=== PATIENT | female | born 1985 | race Caucasian/White ===

== ENCOUNTER 2017-03-06 13:38 | Emergency (ER) | payer MEDICAID ==
[~2017-03-06] VITALS: Wt 113.6 kg
[~2017-03-06 13:38] MED LIST: FERR27TA PO; PREN1TAB49 PO
[2017-03-06] MEDS ORDERED: LIDOCAINE/MYLANTA 40 ML BTL PO ONE (15:00)
[2017-03-06] MEDS ORDERED: HYDROCODONE/APAP (5/325) TAB PO ONE (15:00)
[2017-03-06 15:01] LABS: URINE BLOOD (Dip) POC Negative (NEGATIVE)
[2017-03-06 15:26] LABS: BASOPHILS % 0.3 % (0.0-2.0); EOSINOPHILS # 0.1 10^3/ul (0.0-0.5); EOSINOPHILS % 0.6 % (0.0-7.0); HEMATOCRIT 36.2 % (37.0-47.0); HEMOGLOBIN 11.8 g/dl (12.0-16.0); LYMPHOCYTES # 1.1 10^3/ul (0.8-2.9); LYMPHOCYTES % 12.1 % (15.0-51.0); MEAN CORPUSCULAR HEMOGLOBIN 26.4 pg (29.0-33.0); MEAN CORPUSCULAR HGB CONC 32.6 g/dl (32.0-37.0); MEAN PLATELET VOLUME 10.9 fl (7.4-10.4); MONOCYTE # 0.5 10^3/ul (0.3-0.9); NEUTROPHILS % 81.7 % (39.0-77.0); PLATELET COUNT 273 10^3/UL (140-415); RED BLOOD COUNT 4.47 10^6/ul (4.20-5.40); RED CELL DISTRIBUTION WIDTH 14.1 % (11.5-14.5); WHITE BLOOD COUNT 9.3 10^3/ul (4.8-10.8)
--- NOTE | 2017-03-06 15:47 | RADRPT ---
PROCEDURE: US Abdomen Limited . CLINICAL INDICATION: Abdominal pain TECHNIQUE: Multiple real-time images were acquired of the patient's right upper quadrant abdomen u tilizing a high resolution transducer. COMPARISON: None FINDINGS: The liver measures 18.0 cm and demonstrates a coarsened echogenicity. The gallbladder is filled with a moderate amount of bile. Multiple echogenic, shadowing stones are identified. The largest measu res up to 1.9 cm and is noted in the gallbladder neck. The gallbladder wall is not thickened at 1.2 mm. No pericholecystic fluid is noted. The common bile duct measures 3.3 mm in diameter. The pancre as is not well visualized. Antegrade flow is seen in the portal vein. Right kidney measures 9.2 cm. Right kidney demonstrates a normal echogenicity. No hydronephrosis, masses or stones are noted. IMPRESSION: Diffuse fatty infiltration of a mildly enlarged liver. Cholelithiasis. Pancreas not well visualized. If characterization of this structure is needed repeat exam or CT/MRI is recommended. RPTAT: AA .Kyle Peter MD, MD Date Time Electronically viewed and signed by .Kyle Peter MD, on 03/06/2017 15:47 .P/
[2017-03-06 15:52] LABS: ALBUMIN 4.2 g/dl (3.3-4.9); ALBUMIN/GLOBULIN RATIO 1.13; BILIRUBIN,INDIRECT 0.6 mg/dl (0-1.1); BILIRUBIN,TOTAL 0.6 mg/dl (0.2-1.3); CALCIUM 8.7 mg/dl (8.4-10.2); CREATININE 0.59 mg/dl (0.44-1.00); POTASSIUM 3.8 mmol/L (3.5-5.1); TOTAL PROTEIN 7.9 g/dl (6.1-8.1)
--- NOTE | 2017-03-06 16:47 | ERD ---
ER Documentation Chief Complaint Date/Time DATE: 03/06/17 TIME: 16:45 Chief Complaint abd pain HPI This 31-year-old female who presents the emergency department today complaining of abdominal pain that comes and goes for the past 2 days. States that she woke up with the pain at 3 AM. States the pain is worse with food. She has not taken any medication for the pain states she was told one time " about 8 years ago that she has gastritis". Denies some nausea vomiting, fevers or chills. ROS All systems reviewed and are negative except as per history of present illness. Medications Home Meds Active Scripts Hydrocodone/Acetaminophen ([place] 5-325 Tablet) 1 Each Tablet, 1 TAB PO Q6H Y for PAIN, #7 TAB Prov:KASSIE TOPETE PA-C 03/06/17 Cephalexin* (Keflex*) 500 Mg Capsule, 500 MG PO QID for 7 Days, CAP Prov:KASSIE TOPETE PA-C 03/06/17 Acetaminophen* (Tylophen*) 500 Mg Capsule, 1 CAP PO Q6H Y for PAIN AND OR ELEVATED TEMP, #30 CAP Prov:KASSIE TOPETE PA-C 03/06/17 Famotidine* (Pepcid*) 20 Mg Tablet, 20 MG PO BID for 10 Days, TAB Prov:KASSIE TOPETE PA-C 03/06/17 Reported Medications Vits W-Ca,Fe,Fa(<1MG) () 1 Tab Tablet, 1 PO DAILY 05/12/11 Ferrous Sulfate (Iron) 1 Tab Tablet, 1 PO DAILY 05/12/11 Allergies Allergies: Coded Allergies: No Known Allergies (Unverified Allergy, Unknown, 08/07/06) PMhx/Soc Medical and Surgical Hx: pt denies Medical Hx, pt denies Surgical Hx Hx Alcohol Use: No Hx Substance Use: No Hx Tobacco Use: No Smoking Status: Never smoker Physical Exam Vitals Vital Signs Date Time Temp Pulse Resp B/P Pulse Ox O2 Delivery O2 Flow Rate FiO2 03/06/17 13:46 99.1 97 20 152/81 98 Physical Exam Const: Morbidly obese, no acute distress Head: Atraumatic Eyes: Normal Conjunctiva ENT: Normal External Ears, Nose and Mouth. Neck: Full range of motion..~ No meningismus. Resp: Clear to auscultation bilaterally Cardio: Regular rate and rhythm, no murmurs Abd: Soft, epigastric tenderness, mild right upper quadrant tenderness non distended. Normal bowel sounds. No lower abdominal pain Skin: No petechiae or rashes Back: No midline or flank tenderness Ext: No cyanosis, or edema Neur: Awake and alert Psych: Normal Mood and Affect Result Diagram: 03/06/17 1509 03/06/17 1509 Results 24 hrs Laboratory Tests Test 03/06/17 15:06 03/06/17 15:09 Bedside Urine pH (LAB) 5.5 Bedside Urine Protein (LAB) 1+ Bedside Urine Glucose (UA) Negative Bedside Urine Ketones (LAB) 2+ Bedside Urine Blood Negative Bedside Urine Nitrite (LAB) Negative Bedside Urine Leukocyte Esterase (L 1+ White Blood Count 9.310^3/ul Red Blood Count 4.4710^6/ul Hemoglobin 11.8g/dl Hematocrit 36.2% Mean Corpuscular Volume 81.0fl Mean Corpuscular Hemoglobin 26.4pg Mean Corpuscular Hemoglobin Concent 32.6g/dl Red Cell Distribution Width 14.1% Platelet Count 54533^3/UL Mean Platelet Volume 10.9fl Neutrophils % 81.7% Lymphocytes % 12.1% Monocytes % 5.0% Eosinophils % 0.6% Basophils % 0.3% Nucleated Red Blood Cells % 0.0/100WBC Neutrophils # (Manual) 810^3/ul Lymphocytes # 1.110^3/ul Monocytes # 0.510^3/ul Eosinophils # 0.110^3/ul Basophils # 0.010^3/ul Nucleated Red Blood Cells # 0.010^3/ul Sodium Level 139mmol/L Potassium Level 3.8mmol/L Chloride Level 103mmol/L Carbon Dioxide Level 25mmol/L Anion Gap 15 Blood Urea Nitrogen 11mg/dl Creatinine 0.59mg/dl Glucose Level 118mg/dl Calcium Level 8.7mg/dl Total Bilirubin 0.6mg/dl Direct Bilirubin 0.00mg/dl Indirect Bilirubin 0.6mg/dl Aspartate Amino Transf (AST/SGOT) 240IU/L Alanine Aminotransferase (ALT/SGPT) 271IU/L Alkaline Phosphatase 272IU/L Total Protein 7.9g/dl Albumin 4.2g/dl Globulin 3.70g/dl Albumin/Globulin Ratio 1.13 Lipase 87U/L Current Medications Medications (Trade) Dose Ordered Sig/Michele Route PRN Reason Start Time Stop Time Status Last Admin Dose Admin Acetaminophen/ Hydrocodone Bitart ([place] (5/325)) 1 tab ONCE ONCE PO 03/06/17 15:00 03/06/17 15:01 DC 03/06/17 15:04 Miscellaneous Medication (Gi Cocktail (2)) 40 ml ONCE ONCE PO 03/06/17 15:00 03/06/17 15:01 DC 03/06/17 15:03 DIAGNOSTIC IMAGING REPORT Patient: ARVIN LINN : 1985 Age: 31 Sex: F MR #: [id number] DOS: 03/06/17 0000 Ordering MD: KASSIE TOPETE PA-C Location: [facility] Room/Bed: PROCEDURE: US Abdomen Limited . CLINICAL INDICATION: Abdominal pain TECHNIQUE: Multiple real-time images were acquired of the patient's right upper quadrant abdomen utilizing a high resolution transducer. COMPARISON: None FINDINGS: The liver measures 18.0 cm and demonstrates a coarsened echogenicity. The gallbladder is filled with a moderate amount of bile. Multiple echogenic, shadowing stones are identified. The largest measures up to 1.9 cm and is noted in the gallbladder neck. The gallbladder wall is not thickened at 1.2 mm. No pericholecystic fluid is noted. The common bile duct measures 3.3 mm in diameter. The pancreas is not well visualized. Antegrade flow is seen in the portal vein. Right kidney measures 9.2 cm. Right kidney demonstrates a normal echogenicity. No hydronephrosis, masses or stones are noted. IMPRESSION: Diffuse fatty infiltration of a mildly enlarged liver. Cholelithiasis. Pancreas not well visualized. If characterization of this structure is needed repeat exam or CT/MRI is recommended. RPTAT: AA .Kyle Peter MD, Date Time Electronically viewed and signed by .Kyle Peter MD, on 03/06/2017 15:47 .P/ CC: KASSIE TOPETE PA-C Procedures/MDM This a 31-year-old female presents to the emergency department today complaining of abdominal pain that comes and goes and is worse with food for the past couple of days. Patient had epigastric pain on physical exam and she also had some mild right upper quadrant pain and therefore did obtain laboratory work as well as imaging. Laboratory workup shows no elevated white blood cell count. Her hemoglobin and hematocrit is very mildly decreased. Electro lites are within normal limits. Glucose is within normal limits. Liver enzymes are significantly elevated. Lipase is within normal limits per UA shows 1+ leukocyte esterase and negative nitrites. test is negative Ultrasound shows diffuse fatty infiltration of a mildly enlarged liver. There are multiple echogenic shadowing stones identified. There is no pericholecystic fluid. The gallbladder wall is not thickened. The common bile duct measures 3.3 mm in diameter. Patient symptoms at this time is consistent with epigastric pain with a history of gastritis and gallstones and possibly biliary colic. Given patient's abdominal pain will treat her for urinary tract infection given her 1+ leukocyte Estrace. There is no indication for acute surgical abdomen at this time. Patient has no lower abdominal pain and no evidence of acute cholecystitis. Patient was given [place] and a GI cocktail here in the emergency department and symptoms resolved. Patient is given a prescription for a very limited number of [place], Tylenol, Pepcid for home as well as Keflex to treat her urinary tract infection.. She was instructed to follow-up with her primary care doctor for referral to general surgeon. Patient understood. She was given a list of resources. At this time the patient is stable for discharge and outpatient management. Patient should follow up with their PCP in the next 1-2 days. They may return to the emergency department sooner for any persistent or worsening of symptoms. Patient understood and agreed with the plan. Departure Diagnosis: Primary Impression: Abdominal pain Abdominal location: epigastric Qualified Code: R10.13 - Epigastric pain Additional Impression: UTI (urinary tract infection) Urinary tract infection type: site unspecified Hematuria presence: without hematuria Qualified Code: N39.0 - Urinary tract infection without hematuria, site unspecified Condition: Fair KASSIE TOPETE PA-C Mar 06, 2017 16:46
[2017-03-06] MEDS ORDERED: FAMO-96 PO (16:54)
[2017-03-06] MEDS ORDERED: CEPH-443 PO (16:54)
[2017-03-06] MEDS ORDERED: ACET500C5 PO (16:54)
[2017-03-06] MEDS ORDERED: HYDR-906 PO (16:55)
[2017-03-06 17:21] VITALS: BP 132/76; PULSE 77; RESP 20; TEMP 98.9
== END 2017-03-06 17:23 | disposition home or self-care (01) ==
LOC: FTE 13:38
DX: R10.13 Epigastric pain (principal); N39.0 Urinary tract infection, site not specified
CPT/HCPCS: 36415; 76705; 80053; 81003; 83690; 85025; Z7502; Z7610

== ENCOUNTER 2018-07-09 13:18 | Inpatient (IN) | payer OTHER ==
[~2018-07-09] VITALS: Ht 175.3 cm; Wt 140.8 kg
[~2018-07-09 13:18] MED LIST changes: +ACET500C5 PO; +CEPH-443 PO; +FAMO-96 PO; +HYDR-4011 PO
[2018-07-09 13:32] VITALS: Ht 175.3 cm; Wt 140.8 kg
--- NOTE | 2018-07-09 16:27 | PN ---
Triage Information Date/Time Reason for visit: Elevated blood pressure in office Weeks of Gestation 36 weeks and 3 days /Para Diabetes: none Additional information 32-year-old with single intrauterine at 36 weeks and 3 days with DRU of 08/03/2018 seen in office, she had a one elevated blood pressure. She is sent to triage for further evaluation. She states good movement. She denies nausea, vomiting, shortness of breath, chest pain, headache, visual changes, vaginal bleeding or LOF. Objective Heart Rate: 140's Contractions: None Results/Medications Result Diagram: 07/09/18 1341 07/09/18 1341 Results 24 hrs Laboratory Tests Test 07/09/18 13:30 07/09/18 13:41 Urine Color YELLOW Urine Clarity CLOUDY A Urine pH 6.0 Urine Specific [place] 1.010 Urine Ketones NEGATIVE Urine Nitrite NEGATIVE Urine Bilirubin NEGATIVE Urine Urobilinogen NEGATIVE Urine Leukocyte Esterase 3+ H Urine Microscopic RBC 16 H Urine Microscopic WBC 15 H Urine Squamous Epithelial Cells MODERATE Urine Bacteria FEW A Urine Mucus FEW A Urine Yeast (Budding) FEW A Urine Hemoglobin 1+ H Urine Glucose NEGATIVE Urine Total Protein NEGATIVE White Blood Count 8.3 Red Blood Count 3.82 L Hemoglobin 8.3 #L Hematocrit 27.1 #L Mean Corpuscular Volume 70.9 L Mean Corpuscular Hemoglobin 21.7 L Mean Corpuscular Hemoglobin Concent 30.6 L Red Cell Distribution Width 16.7 H Platelet Count 254 Mean Platelet Volume 11.0 H Immature Granulocytes % 0.800 H Neutrophils % 77.9 H Lymphocytes % 14.7 L Monocytes % 5.0 Eosinophils % 1.2 Basophils % 0.4 Nucleated Red Blood Cells % 0.0 Immature Granulocytes # 0.070 H Neutrophils # 6.5 Lymphocytes # 1.2 Monocytes # 0.4 Eosinophils # 0.1 Basophils # 0.0 Nucleated Red Blood Cells # 0.0 Prothrombin Time 13.5 Prothrombin Time Ratio 1.1 INR International Normalized Ratio 1.02 Activated Partial Thromboplast Time 33.1 Fibrinogen 634.0 H Sodium Level 136 Potassium Level 3.8 Chloride Level 107 Carbon Dioxide Level 22 Anion Gap 7 Blood Urea Nitrogen 5 L Creatinine 0.42 L Est Glomerular Filtrat Rate mL/min > 60 Glucose Level 83 Uric Acid 3.8 Calcium Level 8.1 L Total Bilirubin 0.1 L Direct Bilirubin 0.00 Indirect Bilirubin 0.1 Aspartate Amino Transf (AST/SGOT) 19 Alanine Aminotransferase (ALT/SGPT) 14 Alkaline Phosphatase 169 H Total Protein 6.0 L Albumin 2.8 L Globulin 3.20 Albumin/Globulin Ratio 0.87 Disposition: Discharge Assessment/Plan 32-year-old at 36 weeks and 3 days had one elevated blood pressure in office today, sent to triage for further evaluation. heart rate is category 1. She has no uterine contractions. She had no elevated blood pressure in triage and all blood pressure went up within normal limits. CBC CMP and uric acid performed no sign of preeclampsia with severe features. Urinalysis with 15 white BC and 16 RBC. Urine culture ordered. There is no urine protein. Ultrasound performed EFW of 2915 g. Biophysical profile 8 out of 8, amniotic fluid index 18.1 cm. Sign and symptom of labor, preeclampsia and kick count discussed with patient in detail. She expressed understanding all of her questions answered. She discharged home in stable condition with follow-up in 3 days for repeat NST. I strongly recommend come back to triage with any symptom of preeclampsia with severe features. 2. Anemia: Recommend increase ferrous sulfate to 3 tablets daily and continue vitamin. VESTA MAN Jul 09, 2018 16:27
[2018-07-09] MEDS: LACTATED RINGER'S 1,000 ML IV SCH (17:49)
[2018-07-09] MEDS ORDERED: LACTATED RINGER'S 500 ML IV ONE (18:00)
[2018-07-09] MEDS ORDERED: ACETAMINOPHEN 325 MG TAB PO PRN (21:00)
[2018-07-09] MEDS ORDERED: BETAMET NA PHOS/AC(6 MG/ML) 2 ML INJ SYG IM SCH (22:00)
[2018-07-10] MEDS: LACTATED RINGER'S 1,000 ML IV SCH ×2 (00:40→07:59)
[2018-07-10] MEDS ORDERED: EPHEDrine SULFATE 50 MG/5 ML SYG ONE (07:00)
--- NOTE | 2018-07-10 08:17 | PREAC ---
Date/Time of Note Date/Time of Note DATE: 07/10/18 TIME: 08:15 Anesthesia Eval and Record Evaluation Time Pre-Procedure Interview DATE: 07/10/18 TIME: 08:15 Age 32 Sex female NPO: 8 hrs Preoperative diagnosis Nonreassuring FHR Planned procedure c section Past Medical History Past Medical History: Includes GI: Morbid obesity Surgery & Anesthesia Issues No known issue Meds Anticoagulation: No Beta Deanna within 24 hr: No Reason Beta Deanna not given: Pt. not on B-Deanna Active Scripts Hydrocodone/Acetaminophen ([place] 5-325 Tablet) 1 Each Tablet, 1 TAB PO Q6H PRN for PAIN, #7 TAB Prov:KASSIE TOPETE PA-C 03/06/17 Cephalexin* (Keflex*) 500 Mg Capsule, 500 MG PO QID for 7 Days, CAP Prov:KASSIE TOPETE PA-C 03/06/17 Acetaminophen* (Tylophen*) 500 Mg Capsule, 1 CAP PO Q6H PRN for PAIN AND OR ELEVATED TEMP, #30 CAP Prov:KASSIE TOPETE PA-C 03/06/17 Famotidine* (Pepcid*) 20 Mg Tablet, 20 MG PO BID for 10 Days, TAB Prov:KASSIE TOPETE PA-C 03/06/17 Reported Medications Vits W-Ca,Fe,Fa(<1MG) () 1 Tab Tablet, 1 PO DAILY 05/12/11 Ferrous Sulfate (Iron) 1 Tab Tablet, 1 PO DAILY 05/12/11 Current Medications Lactated Ringer's 1,000 ml @ 125 mls/hr Q8H IV Last administered on 07/10/18at 07:59; Admin Dose 125 MLS/HR; Start 07/09/18 at 18:00 Betamethasone Acet/Betameth SodPhos ([place]el[place] Soluspan) 12 mg Q24H IM Last administered on 07/09/18at 21:50; Admin Dose 12 MG; Start 07/09/18 at 22:00; Stop 07/10/18 at 22:01 Prenat Multivit/ Benzie/Iron/Folic Ac () 1 tab DAILY PO ; Start 07/10/18 at 09:00 Ferrous Sulfate (Ferrous Sulfate (Ec)) 325 mg DAILY PO ; Start 07/10/18 at 09:00 Acetaminophen (Tylenol Tab) 650 mg Q4H PRN PO MILD PAIN(1-3)OR ELEVATED TEMP; Start 07/09/18 at 21:00 Cefazolin Sodium 3 gm/Dextrose 100 ml @ 100 mls/hr ONCE IV ; Start 07/10/18 at 08:30 Oxytocin/Lactated Ringer's 500 ml @ 125 mls/hr POST IV ; Start 07/10/18 at 08:30 Meds reviewed: Yes Allergies Coded Allergies: No Known Allergies (Unverified Allergy, Unknown, 08/07/06) Allergies Reviewed: Yes Labs/Studies Labs Reviewed: Reviewed by anesthesiologist Result Diagram: 07/09/18 1341 07/09/18 1341 Laboratory Tests 07/09/18 13:41 test: Positive Studies: ECG (n/a), CXR (n/a) Pre-procedure Exam Airway: Adequate mouth opening Mallampati: Mallampati I Teeth: Normal Lung: Normal Heart: Normal ASA Physical Status ASA physical status: 3 Emergency: E Planned Anesthetic Neuraxial: Spinal Planned Pain Management Sub-arachniod narcotics, Single shot nerve block Pre-operative Attestations Prior to commencing anesthesia and surgery, the patient was re-evaluated, there was verification of: *The patient's identity *The results of appropriate recent lab work and preoperative vital signs *The above evaluation not changing prior to induction *Anesthetic plan, risk benefits, alternative and complications discussed with patient/family; questions answered; patient/family understands, accepts and wishes to proceed. ALLYSSA POWERS MD Jul 10, 2018 08:17
[2018-07-10] MEDS ORDERED: OXYTOCIN 30 UNITS/LR 500 ML IV SCH (08:30)
[2018-07-10] MEDS ORDERED: CEFAZOLIN 3 GM in DEXTROSE 5% 100 ML IV SCH (08:30)
[2018-07-10] MEDS ORDERED: PRENATAL VITAMIN PO SCH (09:00)
[2018-07-10] MEDS ORDERED: FERROUS SULFATE (EC) 325 MG TAB PO SCH (09:00)
[2018-07-10] MEDS ORDERED: METOCLOPRAMIDE 10 MG INJ ONE (09:24)
[2018-07-10] MEDS ORDERED: KETOROLAC 30 MG INJ ONE (09:24)
[2018-07-10] MEDS ORDERED: morphine SULFATE/PF (10 MG/10 ML) INJ ONE (09:24)
[2018-07-10] MEDS ORDERED: ONDANSETRON 4 MG INJ ONE (09:24)
[2018-07-10] MEDS ORDERED: CARBOPROST 250 MCG INJ IM PRN ×2 (09:30→14:00)
[2018-07-10] MEDS ORDERED: OXYTOCIN 30 UNITS/LR 500 ML IV PRN ×2 (09:30→14:00)
[2018-07-10] MEDS ORDERED: MISOPROSTOL 200 MCG TAB PR PRN ×2 (09:30→14:00)
[2018-07-10] MEDS ORDERED: BUPIVACAINE 0.75%/DEXT (SPINAL) 2 ML INJ ONE (09:41)
[2018-07-10] MEDS ORDERED: OXYTOCIN 30 UNITS/LR 500 ML IV ONE (10:39)
--- NOTE | 2018-07-10 10:53 | PAC ---
Date/Time of Note Date/Time of Note DATE: 07/10/18 TIME: 10:53 Post-Anesthesia Notes Post-Anesthesia Note Last documented vital signs BP 127/65, HR 105, RR20, Sat 98%, tem 98.5 Activity: WNL Respiratory function: WNL Cardiovascular function: WNL Mental status: Baseline Pain reasonably controlled: Yes Hydration appropriate: Yes Nausea/Vomiting absent: No ALLYSSA POWERS MD Jul 10, 2018 10:53
[2018-07-10] MEDS ORDERED: ONDANSETRON 4 MG INJ IV PRN ×2 (11:00)
[2018-07-10] MEDS ORDERED: NALOXONE (0.4 MG/ML) INJ IV PRN (11:00)
[2018-07-10] MEDS ORDERED: morphine 2 MG INJ IV PRN ×3 (11:00)
[2018-07-10] MEDS ORDERED: DIPHENHYDRAMINE 50 MG INJ IV PRN ×2 (11:00)
[2018-07-10] MEDS ORDERED: KETOROLAC 30 MG INJ IV PRN (11:00)
[2018-07-10] MEDS ORDERED: morphine (1 MG/ML) 10ML SYRINGE IV PRN ×3 (11:00)
--- NOTE | 2018-07-10 11:18 | HP ---
Date/Time of Note Date/Time of Note DATE: 07/10/18 TIME: 09:47 OB - History Hx of Present Free Text/Dictation This is a 32 years old female 002 admitted to the hospital at 36 weeks and 3/7 days suspected PIH. During the period of observation noted several times category 3 heart tracing. Considering none effaced closed cervix and not anticipating a timely delivery. Plan of alternative route of delivery by discussed. Complication of section including but not limited to wound infection considering her morbid obesity. Possibility of wound hematoma. And bowel and bladder injury extensively. explained. All her questions answered Chief Complaint: 36 weeks / 7 days . PIH Estimated Due Date: Aug 03, 2018 : 3 Para: 2 Care: Good Care Ultrasounds: Normal mid trimester US Obstetrical Complications: Pre-eclampsia, Gestational Hypertension Medical Complications: None, Other (Morbid obesity) Past Family/Social History * Past Medical, Surgical, Family and Obstetric Histories reviewed from chart. Rubella: immune RPR/VDRL: Negative GBS Status: Negative HBsAG: Negative OB Admission Exam Physical Exam HEENT: WNL Heart: Rhythm Normal Lungs: Clear, Equal Abdomen: WNL Extremities: Normal Reflexes: Normal Cervical Dilatation: None Effacement: 0% Station: -2 Membranes: Intact Heart Rate: 130's Accelerations: Accelerations Present Decelerations: Variable Decelerations Varibility: Minimum Last 72 hours Lab Results CBC & BMP 07/09/18 13:41 Liver Function Test 07/09/18 13:41 Alanine Aminotransferase (ALT/SGPT) 14 Albumin 2.8 L Alkaline Phosphatase 169 H Aspartate Amino Transf (AST/SGOT) 19 Direct Bilirubin 0.00 Total Protein 6.0 L OB Assessment/Plan Reason for admission: other (36 weeks 4 days suspected PIH) Other plan: 32 years old ,36 weeks 4/7 days . Admitted to the hospital ,suspected PIH, during the course of observation and workup for PIH , noted several times prolonged variable deceleration with decreased variability, and lack of acceleration , with regard to her long and non-favorable closed cervix , not anticipating quick and timely delivery, plan of alternative route of delivery by discussed. Indication and reason for operative delivery explained. Also complication of including but not limited to bowel bladder injury wound infection with (morbid obesity), wound hematoma discussed GREGOR,HORMOZ MD Jul 10, 2018 11:08
--- NOTE | 2018-07-10 11:43 | OPR ---
Operative Report Planned Procedure Free Text/Dictation 32 years old , 36 weeks 4/7 day, her is complicated with PIH. Category 3 heart tracing Procedure date Jul 10, 2018 Procedure(s) Primary Performed by see signature line Sales Agent [employer]: JOVANNA LESLIE MD 2nd Sales Agent [employer] none Anesthesiologist: ALLYSSA POWERS MD Pre-procedure diagnosis 36 weeks4/7 days. complicated with PIH. Category 3 heart hernando ng [id number] Anesthesia Type: [id number] spinal Post-Procedure Post-procedure diagnosis Same as above Findings Live Baby girl 7 and 9. Nuchal cord several times around the baby's waist and ankle Estimated Blood Loss: 500 - 600 mls Specimen(s) none Grafts/Implant(s) none Complication(s) none Pt Condition post procedure: stable Disposition: post- Procedure Description Under satisfactory spinal anesthesia patient prepped and draped and placed in supine position. Pfannenstiel incision was made. Incision carried through the subcutaneous tissue. Fascia incised to the length of incision. Rectus muscle divided in midline. Peritoneum exposed and entered to a vertical incision. Exploration of abdomen revealed [gravid uterus at term normal-appearing tubes and ovaries.] Bladder flap was developed. Transverse incision was made in the lower segment of the uterus. Amniotic sac ruptured, [clear amniotic fluid noted.] Live baby girl was delivered from unengaged vertex umbilical cord around the baby's waist and right ankle.Naso oropharyngeal suction was performed. Baby handed to the team for immediate attention. Patient received 20 units of Pitocin. Placenta delivered manually intact. Uterine cavity cleaned with a wet sponge and drainage established. Uterus closed in 2 layers using Monocryl #1 in continuous fashion. Peritoneal cavity irrigated with warm saline. Sponge needle instrument reported to be correct. Abdominal peritoneum closed with 2-0 chromic catgut continuously. Fascia closed with #1 PDS in a continuous fashion. Subcutaneous tissue irrigated with warm saline and approximated with 2-0 chromic catgut skin closed with N sorb. Estimated blood loss 600 cc. Urine bag containing 200 mL of [clear] urine. Patient tolerated procedure well and transferred to recovery room in good condition. SRAVANTHI BUNDY MD Jul 10, 2018 11:38
[2018-07-10 13:40] VITALS: BP 113/63; PULSE 86; RESP 16
[2018-07-10] MEDS ORDERED: CEFAZOLIN 1 GM/50 ML (PMX) 50 ML IVPB SCH (14:00)
[2018-07-10] MEDS ORDERED: HYDROCODONE/APAP (5/325) TAB PO PRN (14:00)
[2018-07-10] MEDS ORDERED: METHYLERGONOVINE 0.2 MG INJ IM PRN (14:00)
[2018-07-10] MEDS ORDERED: LANOLIN HPA 1 PKT TOP PRN (14:00)
[2018-07-10] MEDS ORDERED: OXYCODONE/ACETAMINOPHEN (5/325) TAB PO PRN ×2 (14:00)
[2018-07-10 14:30] VITALS: BP 110/62; PULSE 84; RESP 16
[2018-07-10] MEDS: OXYTOCIN 30 UNITS/LR 500 ML IV SCH ×3 (14:40→22:43)
[2018-07-10 16:00] VITALS: BP 113/65; PULSE 98; RESP 16
--- NOTE | 2018-07-10 16:34 | NUR ---
visit. MOB stated she used breast pump 1x so far. Rev. pump schedule. CEM is a [facility] participant, called [facility] for pump referral. Rev. hand expression. MOB requested to call me when she is ready to hand express. Provided ext.
--- NOTE | 2018-07-10 17:50 | NUR ---
pumped .25ml ebm via pump, then an additional .5ml ebm via hand expression by sara bettencourt travel sales consultant-ebm sent to [facility].
[2018-07-10] MEDS: KETOROLAC 30 MG INJ IV PRN (17:59)
--- NOTE | 2018-07-10 18:14 | NUR ---
eoss: vss, fundus firm, lochia small, iv infusing via pump left hand without difficulty, pumping breasts with electric pump, anxious to visit baby when able, abd dsg dry and intact, no distress noted.
[2018-07-10 20:00] VITALS: BP 98/56; PULSE 92; RESP 20
--- NOTE | 2018-07-10 22:00 | NUR ---
ASSISTED TO BREAST PUMP. NO MILK AT THIS TIME AND NO COLOSTRUM MANUALLY EXPRESSED. LUCIO CARE AND PADS CHANGED. ASSISTED TO DANGLE AT BEDSIDE, THEN STAND AND THEN TO WALK FEW STEPS AT BEDSIDE. TOLERATED WELL. STATES SHE HAS FULL SENSATION IN LEGS. DENIES DIZZY OR WEAKNESS WHEN STANDING. SCDS REPLACED AND CYCLING AT 40. URINE DARK AND CONCENTRATED IN KENDRICK. ENCOURAGED PO FLUIDS. IV CONTINUES.
[2018-07-10 23:58] VITALS: BP 83/48; RESP 19
--- NOTE | 2018-07-11 00:07 | OPPN ---
Date/Time of Note Date/Time of Note DATE: 07/11/18 TIME: 00:07 Anesthesia Follow up Anesthesia Follow up Last documented vital signs Vital Signs Date Temp Pulse Resp B/P (MAP) Pulse Ox O2 O2 Flow FiO2 Time Delivery Rate 07/10/18 98.4 19 83/48 (60) 97 Room Air 23:58 07/10/18 92 20:00 Respiratory function: WNL Cardiovascular function: WNL Comments A 32 year female s/p spinal duramorph for post op pain POD #1 ia doing fine, no pain, N/V, headache, itching, no neural deficit. ALLYSSA POWERS MD Jul 11, 2018 00:07
[2018-07-11] MEDS ORDERED: LACTATED RINGER'S 1,000 ML IV ONE (03:30)
[2018-07-11 03:56] VITALS: BP 81/41; PULSE 82; RESP 18
[2018-07-11] MEDS: KETOROLAC 30 MG INJ IV PRN (04:54)
--- NOTE | 2018-07-11 05:55 | NUR ---
EOSS: AFEBRILE. VS STABLE. BP RUNNING LOW 80s-90s/ 40s-50s. KENDRICK WITH DARK CONCENTRATED ORANGE URINE TONIGHT. UOP= 800 ML. IV CONTINUES LR AT 125 ML PER INFUSION PUMP. SCDS CYCLING AT 40. HAS BEEN OOB THIS SHIFT. TORADOL FOR PRN RELIEF OF POST OP PAIN HAS BEEN GIVING RELIEF. SMALL LOCHIA RUBRA. POST OP DRESSING INTACT, NO DRAINAGE NOTED. HAS BREAST PUMPED EARLIER TONIGHT AND IS NOW ASLEEP.
--- NOTE | 2018-07-11 07:32 | NUR ---
RN ASSUMED CARE FROM [facility]. PT. DENIES ANY DISTRESS AT THIS TIME. POC DISCUSSED FOR TODAY. PT. USING BREAST PUMP. BABY IN NICU.
[2018-07-11 08:24] VITALS: BP 113/62; PULSE 83; RESP 18
[2018-07-11] MEDS ORDERED: INFLUENZA VIRUS VACCINE 0.5 ML (DISPENSING) IM* ONE (09:00)
--- NOTE | 2018-07-11 10:02 | QN ---
Documentation Comment Post day 1 Vital signs stable blood pressures running 130/70. Denies headache blurry vision epigastric pain Abdomen soft Incision dry Bowel sounds present but weak Extremities normal Ambulation encouraged Her hemoglobin down from 8.1 prior to the surgery to 7.4. Denies lightheadedness. Ambulation with help recommended. Possibility of blood transfusion discussed. Laboratory Tests Test 07/11/18 06:54 White Blood Count 10.4 10^3/ul Red Blood Count 3.39 10^6/ul Hemoglobin 7.4 g/dl Hematocrit 24.5 % Mean Corpuscular Volume 72.3 fl Mean Corpuscular Hemoglobin 21.8 pg Mean Corpuscular Hemoglobin Concent 30.2 g/dl Red Cell Distribution Width 17.1 % Platelet Count 240 10^3/UL Mean Platelet Volume 11.4 fl Immature Granulocytes % 0.900 % Neutrophils % 78.8 % Lymphocytes % 15.1 % Monocytes % 4.5 % Eosinophils % 0.4 % Basophils % 0.3 % Nucleated Red Blood Cells % 0.0 /100WBC Immature Granulocytes # 0.090 10^3/ul Neutrophils # 8.2 10^3/ul Lymphocytes # 1.6 10^3/ul Monocytes # 0.5 10^3/ul Eosinophils # 0.0 10^3/ul Basophils # 0.0 10^3/ul Nucleated Red Blood Cells # 0.0 10^3/ul Current Medications Medications Dose Sig/Michele Start Time Status Last (Trade) Ordered Route PRN Stop Time Admin Dose Reason Admin Lactated 500 ml @ Q1H ONCE 07/09/18 DC 07/10/18 Ringer's 500 mls/hr IV 18:00 08:55 07/09/18 18:59 Lactated 1,000 ml @ Q8H IV 07/09/18 DC 07/10/18 Ringer's 125 mls/hr 18:00 07:59 07/10/18 13:54 12 mg Q24H IM 07/09/18 DC 07/09/18 Betamethasone 22:00 21:50 07/10/18 Acet/Betameth 13:54 SodPhos ([place] Soluspan) Prenat 1 tab DAILY PO 07/10/18 DC Multivit/ 09:00 [place]/Iron/Fo 07/10/18 lic Ac 13:55 () Ferrous 325 mg DAILY PO 07/10/18 DC Sulfate 09:00 (Ferrous 07/10/18 Sulfate 13:55 (Ec)) 650 mg Q4H PRN 07/09/18 DC Acetaminophen PO MILD 21:00 (Tylenol PAIN(1-3)OR 07/10/18 Tab) ELEVATED TEMP 13:55 Cefazolin 100 ml @ ONCE IV 07/10/18 DC Sodium 3 100 mls/hr 08:30 gm/Dextrose 07/10/18 13:55 500 ml @ POST 07/10/18 DC 07/10/18 Oxytocin/Lact 125 mls/hr IV 08:30 10:56 ated 07/10/18 Ringer's 13:55 500 ml @ 0 ONCE PRN 07/10/18 DC Oxytocin/Lact mls/hr IV VAGINAL 09:30 ated BLEEDING 07/10/18 Ringer's 13:55 Carboprost 250 mcg ONCE PRN 07/10/18 DC Tromethamine IM VAGINAL 09:30 (Hemabate) BLEEDING 07/10/18 13:55 Misoprostol 1,000 mcg ONCE PRN 07/10/18 DC (Cytotec) IL VAGINAL 09:30 BLEEDING 07/10/18 13:55 Ondansetron 4 mg STK-MED 07/10/18 DC HCl (Zofran ONCE .ROUTE 09:24 Inj) 07/10/18 09:25 Morphine 10 mg STK-MED 07/10/18 DC Sulfate ONCE .ROUTE 09:24 (Duramorph) 07/10/18 09:25 10 mg STK-MED 07/10/18 DC Metoclopramid ONCE .ROUTE 09:24 e HCl 07/10/18 (Reglan) 09:25 Ketorolac 30 mg STK-MED 07/10/18 DC Tromethamine ONCE .ROUTE 09:24 (Toradol) 07/10/18 09:25 Bupivacaine 2 ml STK-MED 07/10/18 DC HCl/ ONCE .ROUTE 09:41 Dextrose 07/10/18 (Marcaine 09:42 0.75% (Spinal)) 500 ml @ ud STK-MED 07/10/18 DC Oxytocin/Lact ONCE IV 10:39 ated 07/10/18 Ringer's 10:40 Morphine 2 mg PACU ORDER 07/10/18 DC Sulfate PRN IV MILD 11:00 (morphine PAIN LEVEL 07/10/18 (REC)) 1-3 13:55 Morphine 4 mg PACU ORDER 07/10/18 DC Sulfate PRN IV 11:00 (morphine MODERATE PAIN 07/10/18 (REC)) LEVEL 4-6 13:55 Morphine 6 mg PACU ORDER 07/10/18 DC Sulfate PRN IV 11:00 (morphine SEVERE PAIN 07/10/18 (REC)) LEVEL 7-10 13:55 Ketorolac 30 mg PACU ORDER 07/10/18 DC Tromethamine PRN IV PAIN 11:00 (Toradol) 07/10/18 13:55 Ondansetron 4 mg PACU ORDER 07/10/18 DC HCl (Zofran PRN IV 11:00 Inj) NAUSEA AND/OR 07/10/18 VOMITING 13:55 25 mg PACU ORDER 07/10/18 DC Diphenhydrami PRN IV 11:00 ne HCl PRURITUS 07/10/18 (Benadryl) 13:55 Naloxone 0.1 mg Q2M PRN 07/10/18 DC HCl IV DECREASED 11:00 (Narcan) REPIRATORY 07/10/18 RATE 13:55 Ketorolac 30 mg Q6H PRN 07/10/18 07/11/18 Tromethamine IV PAIN 11:00 04:54 (Toradol) 07/11/18 10:59 Morphine 3 mg Q3 PRN IV 07/10/18 Sulfate BREAKTHROUGH 11:00 (morphine) PAIN 07/11/18 10:59 Morphine 2 mg Q3H PRN 07/10/18 DC Sulfate IV PAIN 11:00 (morphine) LEVEL 1-5 07/10/18 13:55 Morphine 4 mg Q3H PRN 07/10/18 Sulfate IV PAIN 11:00 (morphine) LEVEL 6-10 07/11/18 10:59 25 mg Q6H PRN 07/10/18 Diphenhydrami IV ITCHING 11:00 ne HCl 07/11/18 (Benadryl) 10:59 Ondansetron 4 mg Q6H PRN 07/10/18 HCl (Zofran IV NAUSEA 11:00 Inj) AND/OR 07/11/18 VOMITING 10:59 1 tab Q4H PRN 07/10/18 Acetaminophen PO PAIN 14:00 / LEVEL 4-6 Hydrocodone Bitart ([place] (5/325)) 2 tab Q4H PRN 07/10/18 Acetaminophen PO PAIN 14:00 / LEVEL 7-10 Hydrocodone Bitart ([place] (5/325)) Oxycodone/ 1 tab Q4H PRN 07/10/18 Acetaminophen PO PAIN 14:00 (Percocet LEVEL 4-6 (5/ 325)) Oxycodone/ 2 tab Q4H PRN 07/10/18 Acetaminophen PO PAIN 14:00 (Percocet LEVEL 7-10 (5/ 325)) Ibuprofen 600 mg Q6 PO 07/11/18 (Motrin) 12:00 Simethicone 160 mg Q8H PRN 07/10/18 (Mylicon) PO 14:00 DISTENSION/GA S/BLOATING 1 tab BID PO 07/11/18 Senna/Docusat 09:00 e Sodium (Senokot-S) Lanolin 1 applic BEDSIDE 07/10/18 07/10/18 (Lanolin Hpa) MEDICATION 14:00 14:41 PRN TOP BEDSIDE FOR GERMÁN TO NIPPLES Diphtheria/ 0.5 ml ONCE ONCE 07/13/18 Tetanus/Acell IM* 09:00 Pertussis 07/13/18 (Adacel) 09:01 500 ml @ 0 ONCE PRN 07/10/18 Oxytocin/Lact mls/hr IV VAGINAL 14:00 ated BLEEDING Ringer's 0.2 mg ONCE PRN 07/10/18 Methylergonov IM VAGINAL 14:00 ine Maleate BLEEDING (Methergine) Carboprost 250 mcg ONCE PRN 07/10/18 Tromethamine IM VAGINAL 14:00 (Hemabate) BLEEDING Misoprostol 1,000 mcg ONCE PRN 07/10/18 (Cytotec) IL VAGINAL 14:00 BLEEDING Cefazolin 50 ml @ ONCE IVPB 07/10/18 DC 07/10/18 Sodium 100 mls/hr 14:00 17:38 07/10/18 14:29 500 ml @ Q4H IV 07/10/18 DC 07/10/18 Oxytocin/Lact 125 mls/hr 13:51 22:43 ated 07/11/18 Ringer's 03:04 Influenza 0.5 ml ONCE ONCE 07/11/18 DC Virus IM* 09:00 Vaccine 07/11/18 Quadrival 09:01 (Fluzone) Lactated 1,000 ml @ Q8H ONCE 07/11/18 07/11/18 Ringer's 125 mls/hr IV 03:30 03:08 07/11/18 11:29 SRAVANTHI BUNDY MD Jul 11, 2018 10:02
--- NOTE | 2018-07-11 10:28 | NUR ---
RN AT BEDSIDE AND F/C REMOVED W/OUT COMPLAINTS. 600 ML OF CONCERNTRATED URINE NOTED IN BAG. PT. THEN AMBULATED TO B.R. W/ RN ASSIST FOR PERICARE. TEACHING DONE AND HAND HYGIENE PERFORMED. LINENS, PERIPAD, AND GOWN CHANGED. DRESSING REMOVED W/OUT COMPLAINTS. SKIN INTACT AND INCISION W/ STERI STRIPS OPEN TO AIR. CLEANING OF INCISION SITE REVIEWED. PT. NOW REQUESTING TO GO TO NICU AND TO NICU VIA WHEELCHAIR. PT. DENIES PAIN, SOB, H.A., PREECAMPLSIA S&S REVIEWED. PT. STATES SHE IS STABLE AT THIS TIME
[2018-07-11] MEDS: IBUPROFEN 600 MG TAB PO SCH ×2 (12:32→17:16)
[2018-07-11] MEDS: SENNA/DOCUSATE NA (8.6MG/50MG) TAB PO SCH ×2 (12:32→20:56)
[2018-07-11 13:56] VITALS: BP 103/58; PULSE 83; RESP 18
--- NOTE | 2018-07-11 15:30 | NUR ---
pt. has voided x2 already 600ml/each time. pt. in shower and pt. has only taken motrin for pain on this a.m. shift. pt. motivated and stable. incision clean w/ steri strips in place
--- NOTE | 2018-07-11 16:29 | NUR ---
SS NOTE: THIS SW MET WITH PT WHO DELIVERED A BABY GIRL WHO WAS ADMITTED TO THE NICU FOR RDS. CHART REVIEWED, DATABASE COMPLETED. PT UNDERSTANDS THE NEED OF ADMISSION AND COPING WELL. PT HAS A GOOD FAMILY SUPPORT SYSTEM. PT IS WITH TWO OTHER CHILDREN AGES 12 & 7, HEALTHY AND HAPPY. PT SPOUSE IS YARELY BONDS, . PT RECD GOOD PNC WITH DR. BUNDY, . PT DENIES ANY INTERPERSONAL PROBLEMS, DENIES ETOH, ILLICIT DRUG USE, DV, CPS, OR MENTAL ILLNESS. PT RECENTLY MOVED BUT DID NOT KNOW HER NEW ADDRESS. SW ENCOURAGED PT TO UPDATE HER ADDRESS WITH ADMITTING. PT VERBALIZED UNDERSTANDING. SW PROVIDED SUPPORT & ENCOURAGEMENT AND WILL FOLLOW UP THROUGHOUT ADMISSION.
[2018-07-11] MEDS: HYDROCODONE/APAP (5/325) TAB PO PRN (16:40)
[2018-07-11 16:58] VITALS: BP 115/61; PULSE 83; RESP 22
--- NOTE | 2018-07-11 18:22 | NUR ---
EOSS: PT. STABLE AND HAS VISITED BABY IN NICU W/OUT COMPLICATIONS. PT. CONTINUES TO PUMP BREAST MILK. VS WNL AND FUNDUS FIRM W/ SMALL AMOUNT OF [place] LOCHIA NOTED.
[2018-07-11 21:40] VITALS: BP 103/55; PULSE 83; RESP 19
[2018-07-12] MEDS: IBUPROFEN 600 MG TAB PO SCH ×3 (00:29→11:49)
[2018-07-12 04:00] VITALS: BP 111/77; PULSE 82; RESP 16
--- NOTE | 2018-07-12 06:30 | NUR ---
EOSS: PATIENT IN STABLE CONDITION.
[2018-07-12] MEDS: SENNA/DOCUSATE NA (8.6MG/50MG) TAB PO SCH (10:20)
--- NOTE | 2018-07-12 10:20 | NUR ---
RONNIE NOTES: Mother stated that [facility] has contacted her and that she will pick out hand BF pump Saturday. Mother was pumping from one breast, LC informed mother that she should remove the tubing from the side that she is not using. LC also told her that pumping both breast at the same time increase prolactin levels. Mother nipple was filling up the flange. To avoid damage to her nipple LC recommended pumping w/ 27 size flange with a lower suction. LC informed mother that when the swelling leaves her body she can go back to using 24 flange. Mother verbalized understanding, RN to follow.
[2018-07-12] MEDS ORDERED: DIPHTH/TET/ACEL PERTUSS (ADULT) 0.5 ML VIAL IM* ONE (10:30)
[2018-07-12] MEDS: HYDROCODONE/APAP (5/325) TAB PO PRN (11:49)
[2018-07-12 16:00] VITALS: BP 116/60; PULSE 79; RESP 18
--- NOTE | 2018-07-12 17:41 | DS ---
Date/Time of Note Date/Time of Note DATE: 07/12/18 TIME: 17:39 Discharge Summary Admission/Discharge Info Admit Date/Time Jul 09, 2018 at 20:35 Discharge Date/Time 02/09/2018 at 1730 Discharge Diagnosis Post day 3 Patient Condition: Good Consults Perinatologist Procedures Primary Hx of Present Illness complicated with preeclampsia, nonreassuring heart tracing Hospital Course Satisfactory uneventful Home Meds Active Scripts Hydrocodone/Acetaminophen ([place] 5-325 Tablet) 1 Each Tablet, 1 TAB PO Q6H PRN for PAIN, #7 TAB Prov:KASSIE TOPETE PA-C 03/06/17 Cephalexin* (Keflex*) 500 Mg Capsule, 500 MG PO QID for 7 Days, CAP Prov:KASSIE TOPETE PA-C 03/06/17 Acetaminophen* (Tylophen*) 500 Mg Capsule, 1 CAP PO Q6H PRN for PAIN AND OR ELEVATED TEMP, #30 CAP Prov:KASSIE TOPETE PA-C 03/06/17 Famotidine* (Pepcid*) 20 Mg Tablet, 20 MG PO BID for 10 Days, TAB Prov:KASSIE TOPETEC 03/06/17 Reported Medications Vits W-Ca,Fe,Fa(<1MG) () 1 Tab Tablet, 1 PO DAILY 05/12/11 Ferrous Sulfate (Iron) 1 Tab Tablet, 1 PO DAILY 05/12/11 Follow-up Plan Post instruction given recommended to make appointment to be seen at the office in 1 week Primary Care Provider Care Physician No Primary Time spent on discharge: < 30 minutes SRAVANTIH BUNDY MD Jul 12, 2018 17:41
--- NOTE | 2018-07-12 17:45 | NUR ---
Discharge instructions given to patient including signs and symptoms to watch out for and when to call the doctor. Patient verbalized understanding. Patient to call clinic for follow up appointment.
[2018-07-13] MEDS ORDERED: DIPHTH/TET/ACEL PERTUSS (ADULT) 0.5 ML VIAL IM* ONE (09:00)
== END 2018-07-12 17:50 | disposition home or self-care (01) | DRG 788 ==
LOC: OBT 13:18 → L-D 13:19 → OBT 20:35 → L-D 07-10 09:46 → PP1 07-10 14:14
PROVIDERS: ADMIT Obstetrics & Gynecology; ATTEND Obstetrics & Gynecology
PROC: 10D00Z1 Extraction of Products of Conception, Low, Open Approach (ICD-10-PCS; principal; 2018-07-10 10:00)
DX: O60.14X0 Preterm labor third trimester with preterm delivery third trimester, not applicable or unspecified (principal); O99.214 Obesity complicating childbirth; E66.9 Obesity, unspecified; O13.4 Gestational [pregnancy-induced] hypertension without significant proteinuria, complicating childbirth; O14.94 Unspecified pre-eclampsia, complicating childbirth; O76 Abnormality in fetal heart rate and rhythm complicating labor and delivery; Z3A.36 36 weeks gestation of pregnancy; Z37.0 Single live birth
CPT/HCPCS: 36415; 76815; 76818; 80053; 81001; 84560; 85025; 85384; 85610; 85730; 86592; 86850; 86900; 86901; 87086; 87340; 90686; 90715; 96361; 99464; G0463; J0690; J0702; J1885; J2274; J2405; J2590; J2765; J7120